=== PATIENT | male | born 1965 | race Caucasian/White ===

== ENCOUNTER 2017-03-19 19:34 | Emergency (ER) | payer OTHER ==
[2017-03-19 19:49] VITALS: BP 132/79; PULSE 73; TEMP 97; BMI 22.4
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
[2017-03-19] MEDS ORDERED: ACETAMINOPHEN 1000 MG/100 ML VIAL (NON FORMULARY) IVPB ONE (23:06)
[2017-03-20] MEDS ORDERED: ACETAMINOPHEN INJECTION 100 ML IVPB ONE (00:05)
[2017-03-20 00:10] LABS: BASOPHIL 0.4 % (0-2.0); EOSINOPHIL 2.7 % (0-4.5); MCH 29.2 pg (25.7-33.7); MCHC 33.2 g/dl (32.0-35.9); MEAN CELL VOLUME 87.7 fl (80-96); NEUTROPHILS 64.1 % (42.8-82.8); RDW 14.8 % (11.9-15.9); WHITE BLOOD COUNT 3.6 K/mm3 (4.0-10.0)
[2017-03-20 00:22] LABS: INR 1.28 (0.82-1.09); PROTHROMBIN TIME (PATIENT) 14.1 SEC (9.98-11.88)
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
[2017-03-20 00:32] LABS: ALBUMIN 3.9 g/dl (3.4-5.0); ALK PHOS 65 U/L (45-117); ANION GAP 7 (8-16); BILIRUBIN,TOTAL 0.4 mg/dL (0.2-1.0); CALCIUM 8.3 mg/dL (8.5-10.1); CO2 30 mmol/L (21-32); CREATININE 0.8 mg/dL (0.7-1.3); GLUCOSE,RANDOM 94 mg/dL (74-106); SGOT/AST 27 U/L (15-37); SGPT/ALT 25 U/L (12-78); TOT PROT 6.7 g/dl (6.4-8.2)
[2017-03-20 01:40] LABS: MEAN PLT VOLUME 11.4 fl (7.5-11.1); PLATELET COUNT 71 K/MM3 (134-434)
[2017-03-20 01:42] LABS: PLATELET COMMENT2 NO CLOTTING DETECTED
== END 2017-03-20 00:59 | disposition home or self-care (01) ==
LOC: JER 19:34
PROC: 3E033NZ Introduction of Analgesics, Hypnotics, Sedatives into Peripheral Vein, Percutaneous Approach (ICD-10-PCS; principal; 2017-03-19)
DX: S20.211A Contusion of right front wall of thorax, initial encounter (principal); S70.01XA Contusion of right hip, initial encounter; S80.01XA Contusion of right knee, initial encounter; V23.4XXA Motorcycle driver injured in collision with car, pick-up truck or van in traffic accident, initial encounter; Y92.414 Local residential or business street as the place of occurrence of the external cause; Y93.89 Activity, other specified; Y99.8 Other external cause status
CPT/HCPCS: 36415; 71020-TC; 73523-TC; 73564-TC-RT; 80053; 85025; 85610; 99281-25; 99282-25